=== PATIENT | male | born 1995 | race Caucasian/White ===

== ENCOUNTER 2019-04-11 00:26 | Emergency (ER) | payer OTHER ==
[~2019-04-11] VITALS: Ht 162.6 cm; Wt 65.8 kg
[2019-04-11] MEDS ORDERED: NORCO 5-325 TA1 EACH PO (01:18)
== END 2019-04-11 02:33 | disposition home or self-care (01) ==
LOC: ED 00:26
PROC: 0XQLXZZ Repair Right Thumb, External Approach (ICD-10-PCS; principal; 2019-04-11)
DX: S66.021A Laceration of long flexor muscle, fascia and tendon of right thumb at wrist and hand level, initial encounter (principal); F17.200 Nicotine dependence, unspecified, uncomplicated; W27.0XXA Contact with workbench tool, initial encounter
CPT/HCPCS: 12002; 73140; 90471; 90715; 99283-25

== ENCOUNTER 2019-04-16 07:00 | Day surgery (SDC) | payer OTHER ==
[~2019-04-16] VITALS: Ht 162.6 cm; Wt 68.0 kg
[~2019-04-16 07:00] MED LIST: NORCO 5-325 TA1 EACH PO
--- NOTE | 2019-04-16 10:07 | NUR ---
PT ALERT, ORIENTED AND SUPPORTED BY HIS DAD CELESTE. PT WAS VERY RESPONSIVE AND ATTENTIVE. I GAVE OUTLINE ON WHAT THEY COULD EXPECT FROM TENTATIVE SCHEDULE AND STAFF. PT APPEARED TO BE DEALING WELL WITH INJURY AND TRAUMA ASSOCIATED. PT REQUESTED PRAYER, THANKED ME FOR COMING IN. WILL FOLLOW NEEDED
--- NOTE | 2019-04-16 13:35 | NUR ---
04/16/19 1335 Savanah Quiñones 1323-PATIENT ARRIVED TO PACU ON RA REACTIVE TO VOICE MOVING HEAD. DROWSY SR. RR EVEN. PATIENT MOVING RIGHT ARM. EDUCATED ABOUT LAYING ARM STRAIGHT. ELEVATED ON PILLOW. ICE APPLIED. DRESSING CDI. 1330-PATIENT AWAKE DROWSY TALKING AND LAUGHING DENIES PAIN OR NAUSEA. ABLE TO LIGHT RIGHT ARM. REPORTS CAN FEEL FINGERS WHEN TOUCHED ABLE TO WIGGLE SLIGHTLY. GOOD CAP REFILL ZEYNEP RIGHT RADIAL PULSE.
--- NOTE | 2019-04-16 14:18 | NUR ---
1355 PT BACK TO ROOM FROM PACU AWAKE AND ALERT DENIES PAIN OR NAUSEA. DAD AT BEDSIDE.
--- NOTE | 2019-04-16 14:19 | NUR ---
1410 PT AMBULATED TO BATHROOM WITH MINIMAL HELP. HE WAS ABLE TO VOID.
--- NOTE | 2019-04-16 14:20 | NUR ---
1415 PT EATING PUDDING AND DRINKING WATER TOLERATES WELL.
--- NOTE | 2019-04-16 14:48 | NUR ---
3315 PT REQUEST THAT I TAKE IV OUT. REMOVED IV PT TOLERATED WELL. DISCHARGE INSTRUCTIONS GIVEN TO PT AND DAD BOTH VOICED UNDERSTANDING. DAD HELPED PT GET DRESSED.
--- NOTE | 2019-04-16 15:05 | NUR ---
1555 PT DISCHARGED TO HOME ACCOMPANIED BY DAD. RT HAND FINGERS WITH GOOD CAP REFILL, WARM TO TOUCH, WITH MINIMAL MOVEMENT DUE TO AXILLARY BLOCK.
--- NOTE | 2019-04-16 15:44 | EKG ---
[facility] [address] [facility] [place], [place] [address] Signed Sinus rhythm with marked sinus arrhythmia Otherwise normal ECG When compared with ECG of 16-APR-2019 11:36, (Unconfirmed) No significant change was found Confirmed by GAVINO LION MD ([id number] on 04/16/2019 3:43:50 PM Electronically Signed By: GAVINO LION MD 04/16/19 1544 PATIENT NAME: RADHA FREEMAN Electrocardiogram DATE OF : [birth year] PHYSICIAN: GAVINO LION MD REPORT #: [id number] REPORT IS CONFIDENTIAL AND NOT TO BE RELEASED WITHOUT AUTHORIZATION
--- NOTE | 2019-04-17 07:50 | OR ---
[facility] [address] [place], [place] [address] Signed DATE OF OPERATION: 04/16/2019 SURGEON: Viky Hernandez MD PREOPERATIVE DIAGNOSIS: Laceration, flexor pollicis longus tendon and ulnar digital nerve and radial digital nerve, right thumb. POSTOPERATIVE DIAGNOSIS: Laceration, flexor pollicis longus tendon and ulnar digital nerve and radial digital nerve, right thumb. PROCEDURE PERFORMED: Exploration right thumb wound with repair of FPL tendon and micro repair of the digital nerves, both on the radial and the ulnar side. ANESTHESIA: General. SPECIMENS AND COMPLICATIONS: There were no specimens or complications. TOURNIQUET TIME: About an hour. WHAT WAS DONE: The patient was taken to the operating room. After anesthesia was induced and airway secured, the patient was positioned, prepped and draped in a routine sterile fashion. The arm was exsanguinated with an Esmarch bandage. Pneumatic tourniquet was inflated to 250 mmHg pressure. The sutures had already been removed from this laceration. We then extended the laceration proximally and distally using modified Tiera incisions. The skin was divided sharply. Subcutaneous tissue was bluntly spread. We were able to identify the proximal end of the ulnar digital nerve, the distal end of the ulnar digital nerve, the proximal end of the FPL tendon and the distal end of the FPL tendon. The radial digital nerve was only partially lacerated. The wound was gently irrigated. We then placed a modified Tsuge suture of 2-0 FiberWire in the both ends of the FPL tendon and then repaired the tendon by tying these together. This gave us a snug solid repair of the tendon. We then sutured the partial laceration of the radial digital nerve with a 7-0 nylon suture and then similarly repaired the ulnar digital nerve with interrupted sutures of 7-0 nylon. The wound was gently irrigated, closed in standard Electronically Signed By: VIKY HERNANDEZ MD 04/17/19 0750 PATIENT NAME: RADHA FREEMAN OPERATIVE REPORT DATE OF : [birth year] REPORT #: [id number] PHYSICIAN: VIKY HERNANDEZ MD PCP: NO PRIMARY CARE PHYSICIAN REPORT IS CONFIDENTIAL AND NOT TO BE RELEASED WITHOUT AUTHORIZATION [facility] [address] [place] [id number] Signed fashion with 4-0 nylon. Sterile dressing and a splint were applied. He was awakened, taken to recovery room where he arrived in stable condition. Counts were correct and antibiotic protocols were followed. Viky Hernandez MD WFB/MODL /[id number] Copies: ~ Electronically Signed By: VIKY HERNANDEZ MD 04/17/19 0750 PATIENT NAME: RADHA FREEMAN OPERATIVE REPORT DATE OF : [birth year] REPORT #: [id number] PHYSICIAN: VIKY HERNANDEZ MD PCP: NO PRIMARY CARE PHYSICIAN REPORT IS CONFIDENTIAL AND NOT TO BE RELEASED WITHOUT AUTHORIZATION
== END 2019-04-16 14:55 | disposition home or self-care (01) ==
LOC: DS 07:00
PROVIDERS: Orthopaedic Surgery
PROC: 01Q40ZZ Repair Ulnar Nerve, Open Approach (ICD-10-PCS; 2019-04-16)
PROC: 0LQ70ZZ Repair Right Hand Tendon, Open Approach (ICD-10-PCS; 2019-04-16)
PROC: 01Q60ZZ Repair Radial Nerve, Open Approach (ICD-10-PCS; principal; 2019-04-16 10:15)
DX: S66.021A Laceration of long flexor muscle, fascia and tendon of right thumb at wrist and hand level, initial encounter (principal); S64.01XA Injury of ulnar nerve at wrist and hand level of right arm, initial encounter; S64.21XA Injury of radial nerve at wrist and hand level of right arm, initial encounter; F17.210 Nicotine dependence, cigarettes, uncomplicated; Q67.6 Pectus excavatum; W31.2XXA Contact with powered woodworking and forming machines, initial encounter
CPT/HCPCS: 00400; 64417; 76942; 93005; 93010; J0690; J1100; J1885; J2250; J2405; J2704; J2795; J7120

== ENCOUNTER 2020-10-27 15:55 | Emergency (ER) | payer SELFPAY ==
[~2020-10-27] VITALS: Ht 162.6 cm; Wt 160.0 kg
--- NOTE | 2020-10-28 18:29 | EKG ---
[facility] [address] [place] [address] Signed Sinus tachycardia Incomplete right bundle branch block Borderline ECG When compared with ECG of 16-APR-2019 11:44, Incomplete right bundle branch block is now present Confirmed by JAMI MESA MD ([id number]) on 10/28/2020 6:29:53 PM Electronically Signed By: JAMI MESA MD 10/28/20 1829 PATIENT NAME: RADHA FREEMAN Electrocardiogram DATE OF : [birth year] PHYSICIAN: JAMI MESA MD REPORT #: [id number] REPORT IS CONFIDENTIAL AND NOT TO BE RELEASED WITHOUT AUTHORIZATION
--- NOTE | 2020-10-28 18:32 | EKG ---
[facility] [address] [facility] [place] [address] Signed Sinus rhythm with marked sinus arrhythmia Incomplete right bundle branch block Anterior infarct , age undetermined Abnormal ECG When compared with ECG of 27-OCT-2020 16:05, (Unconfirmed) No significant change was found Confirmed by JAMI MESA MD ([id number]) on 10/28/2020 6:32:43 PM Electronically Signed By: JAMI MESA MD 10/28/20 1832 PATIENT NAME: RADHA FREEMAN Electrocardiogram DATE OF : [birth year] PHYSICIAN: JAMI MESA MD REPORT #: [id number] REPORT IS CONFIDENTIAL AND NOT TO BE RELEASED WITHOUT AUTHORIZATION
== END 2020-10-27 21:43 | disposition short-term general hospital (02) ==
LOC: ED 15:55
DX: R56.9 Unspecified convulsions (principal); Q04.0 Congenital malformations of corpus callosum; R55 Syncope and collapse; I49.9 Cardiac arrhythmia, unspecified; F17.200 Nicotine dependence, unspecified, uncomplicated
CPT/HCPCS: 70450; 80053; 81001; 85025; 96365; 96375; 99285-25; C9803; G0480; J1953; J2060; U0003